=== PATIENT | female | born 1955 | race Caucasian/White ===

== ENCOUNTER 2018-08-05 16:27 | Inpatient (IN) | payer BC ==
[2018-08-05] MEDS ORDERED: Sodium Chloride 0.9% 100 ML SDV FLUSH PRN (18:13)
[2018-08-05] MEDS: Piperacillin/Tazobactam 4.5 GM in Sodium Chloride 0.9% 100 ML IV SCH (18:30)
[2018-08-05] MEDS: atorvaSTATin 40 MG Tab PO SCH (20:02)
[2018-08-05] MEDS: Gabapentin 100 MG Cap PO SCH (20:02)
[2018-08-05] MEDS: Apixaban 5 MG Tab PO SCH (20:02)
[2018-08-05] MEDS ORDERED: Non-Formulary Medication 1 Each (Magnesium Oxide [Magnesium Oxide] 400 MG) PO SCH (21:00)
[2018-08-06] MEDS: Piperacillin/Tazobactam 4.5 GM in Sodium Chloride 0.9% 100 ML IV SCH ×4 (01:00→20:23)
[2018-08-06] MEDS: Acetaminophen 325 MG Tab PO PRN ×4 (01:04→20:26)
[2018-08-06] MEDS: Omeprazole 20 MG Cap.CR PO SCH (07:24)
[2018-08-06] MEDS: Apixaban 5 MG Tab PO SCH ×2 (08:37→20:25)
[2018-08-06] MEDS: predniSONE 20 MG Tab PO SCH (08:37)
[2018-08-06] MEDS: Gabapentin 100 MG Cap PO SCH ×2 (08:37→20:25)
[2018-08-06] MEDS: Potassium Chloride 20 MEQ Tab.ER PO SCH (08:38)
[2018-08-06] MEDS: Venlafaxine 150 MG Cap.ER PO SCH (08:38)
--- NOTE | 2018-08-06 10:23 | PCM.PN ---
- General Info Date of Service: 08/06/18 Functional Status: Reports: Tolerating Diet, Other (Admits to feeling better today, less pain upon inspiration,). Denies: New Symptoms - Review of Systems General: Denies: Fever, Weakness, Fatigue, Malaise, Chills HEENT: Reports: No Symptoms Pulmonary: Reports: Sputum. Denies: Shortness of Breath, Pleuritic Chest Pain, Wheezing Cardiovascular: Denies: Chest Pain Gastrointestinal: Reports: No Symptoms Genitourinary: Reports: No Symptoms Skin: Reports: No Symptoms. Denies: Pruritis Neurological: Reports: No Symptoms Psychiatric: Reports: No Symptoms - Patient Data Vitals - Most Recent: Last Vital Signs Temp 98.5 F 08/06/18 06:45 Pulse 80 08/06/18 06:45 Resp 20 08/06/18 06:45 BP 132/78 08/06/18 06:45 Pulse Ox 93 L 08/06/18 06:45 Weight - Most Recent: 169 lb 11.2 oz I&O - Last 24 Hours: Intake & Output 08/05/18 08/06/18 08/06/18 22:59 06:59 14:59 Intake Total 700 375 Balance 700 375 Lab Results Last 24 Hours: Laboratory Results - last 24 hr 08/06/18 08/06/18 Range/Units 07:07 07:07 WBC 8.52 (5.00-10.00) 10^3/uL RBC 3.92 (3.80-5.50) 10^6/uL Hgb 12.7 (12.0-16.0) g/dL Hct 38.9 (37.0-47.0) % MCV 99.2 H (82.0-92.0) fL MCH 32.4 H (27.0-31.0) pg MCHC 32.6 (32.0-36.0) g/dL RDW 13.6 (11.5-14.5) % Plt Count 297 (150-400) 10^3/uL MPV 10.6 H (7.4-10.4) fL Immature Gran % (Auto) 0.9 (0.0-5.0) % Neut % (Auto) 77.7 H (50.0-70.0) % Lymph % (Auto) 13.8 L (20.0-40.0) % [place] % (Auto) 7.0 (2.0-8.0) % Eos % (Auto) 0.6 L (1.0-3.0) % Baso % (Auto) 0.0 (0.0-1.0) % Immature Gran # (Auto) 0.08 (0.00-0.50) 10^3/uL Neut # (Auto) 6.61 (2.50-7.00) 10^3/uL Lymph # (Auto) 1.18 (1.00-4.00) 10^3/uL [place] # (Auto) 0.60 (0.10-0.80) 10^3/uL Eos # (Auto) 0.05 L (0.10-0.30) 10^3/uL Baso # (Auto) 0.00 (0.00-0.10) 10^3/uL Sodium 142 (136-145) mmol/L Potassium 4.2 (3.3-5.3) mmol/L Chloride 103 (98-115) mmol/L Carbon Dioxide 30.2 (21.0-32.0) mmol/L Anion Gap 13.0 (5-15) mmol/L BUN 18 (6-25) mg/dL Creatinine 1.03 (0.51-1.17) mg/dL Est Cr Clr Drug Dosing 54.37 mL/min Estimated GFR (MDRD) 54 mL/min Glucose 87 (75 - 99) mg/dL Calcium 9.2 (8.7-10.3) mg/dL Med Orders - Current: Current Medications Acetaminophen (Tylenol) 650 mg PO Q4HR PRN PRN Reason: Pain Last Admin: 08/06/18 08:36 Dose: 650 mg Apixaban (Eliquis) 5 mg PO BID [facility] Last Admin: 08/06/18 08:37 Dose: 5 mg Atorvastatin Calcium (Lipitor) 40 mg PO BEDTIME [facility] Last Admin: 08/05/18 20:02 Dose: 40 mg Gabapentin (Neurontin) 100 mg PO BID [facility] Last Admin: 08/06/18 08:37 Dose: 100 mg Piperacillin Sod/Tazobactam (Sod 4.5 gm/ Sodium Chloride) 100 mls @ 200 mls/hr IV Q6H [facility] Last Admin: 08/06/18 07:40 Dose: 200 mls/hr Vancomycin HCl 1.25 gm/ Sodium (Chloride) 250 mls @ 166.667 mls/hr IV Q12H [facility] Last Admin: 08/06/18 05:47 Dose: 166.667 mls/hr Sodium Chloride (Normal Saline) 250 mls @ 50 mls/hr IV ASDIRECTED [facility] Non-Formulary Medication (Magnesium Oxide [Magnesium Oxide]) 400 mg PO BID [facility] Omeprazole (Omeprazole) 20 mg PO ACBREAKFAST [facility] Last Admin: 08/06/18 07:24 Dose: 20 mg Potassium Chloride (Klor-Con M20) 20 meq PO DAILY [facility] Last Admin: 08/06/18 08:38 Dose: 20 meq Prednisone (Prednisone) 20 mg PO DAILY [facility] Last Admin: 08/06/18 08:37 Dose: 20 mg Sodium Chloride (Normal Saline) 100 ml FLUSH ASDIRECTED PRN PRN Reason: Other Last Admin: 08/05/18 18:30 Dose: 100 ml Vancomycin HCl (Pharmacy To Dose - Vancomycin) 1 dose .XX ASDIRECTED [facility] Venlafaxine HCl (Effexor Xr) 150 mg PO DAILY [facility] Last Admin: 08/06/18 08:38 Dose: 150 mg Discontinued Medications Vancomycin HCl 1.25 gm/ Sodium (Chloride) 250 mls @ 166.667 mls/hr IV ONETIME ONE Stop: 08/05/18 18:44 Last Admin: 08/05/18 19:22 Dose: 166.667 mls/hr - Exam Quality Assessment: No: Supplemental Oxygen General: Alert, Oriented, Cooperative, No Acute Distress Neck: Supple Lungs: Rhonchi (Posterior rhonchi left middle) Cardiovascular: Regular Rate, Regular Rhythm GI/Abdominal Exam: Soft, Non-Tender (Female) Exam: Deferred Back Exam: No: CVA Tenderness (L), CVA Tenderness (R) Extremities: No Pedal Edema, Normal Capillary Refill Peripheral Pulses: 2+: Radial (L), Radial (R) Neurological: No New Focal Deficit Psy/Mental Status: Alert, Normal Affect, Normal Mood - Problem List Review Problem List Initiated/Reviewed/Updated: Yes - My Orders Last 24 Hours: My Active Orders 08/06/18 11:30 Sodium Chloride 0.9% [Normal Saline] 250 ml IV ASDIRECTED - Plan Plan:: history summary 63 YO female Was admitted August [address] Benny henderson due to pneumonia. Patient underwent bronchoscopy on 07/21/18 which confirmed diagnosis of metastatic cervical cancer. A few days following, continued to have shortness of breath and cough. she was subsequentlys started levofloxacin and prednisone on 07/29/18 without much resolution in symptoms and also had increase in purulent sputum production S/p bronchoscopy on 07/21/18 which confirmed diagnosis of metastatic cervical cancer. A few days following, continued to have shortness of breath and cough. Started levofloxacin and prednisone on 07/29/18. Hasn't noticed much improvement and instead feels worse. Denies hemoptysis, but has purulent sputum production. Also persistently short of breath without much improvement with current measures. Ongoing generalized fatigue and weakness. Real alleviating factors. Vital signs at [facility] HR 100,m BP 100/68, temperature 97.7 O2 sats 90% primary hospital problems Pneumonia, RLL, failed outpatient ABX Zosyn/vancomycin, sputum culture, Bronchogenic carcinoma Chronic problems Cervical CA COPD/current tobacco user, mild obstructive ventilatory limitation, chronic anticoagulation Hypercholesterolemia, home statin Obesity depression GERD, PPI disposition/overall plan --Continue inpatient status --Continue with Current antibiotic, pharmacy to trough --BC surveillance/sputum --DVT prophylaxis, on home factor Xa inhibitor 2/2 to his treatment of DVT
[2018-08-06] MEDS ORDERED: Sodium Chloride 0.9% 250 ML IV SCH (11:30)
[2018-08-06] MEDS: atorvaSTATin 40 MG Tab PO SCH (20:25)
[2018-08-07] MEDS: Acetaminophen 325 MG Tab PO PRN ×2 (02:52→11:19)
[2018-08-07] MEDS: Piperacillin/Tazobactam 4.5 GM in Sodium Chloride 0.9% 100 ML IV SCH ×3 (02:59→13:52)
[2018-08-07] MEDS: Omeprazole 20 MG Cap.CR PO SCH (07:34)
[2018-08-07 07:46] LABS: ANION GAP 11.7 mmol/L (5-15)
[2018-08-07] MEDS: Gabapentin 100 MG Cap PO SCH (08:47)
[2018-08-07] MEDS: Apixaban 5 MG Tab PO SCH (08:47)
[2018-08-07] MEDS: Venlafaxine 150 MG Cap.ER PO SCH (08:47)
[2018-08-07] MEDS: Potassium Chloride 20 MEQ Tab.ER PO SCH (08:47)
[2018-08-07] MEDS: predniSONE 20 MG Tab PO SCH (08:48)
--- NOTE | 2018-08-07 11:38 | PCM.DCSUM1 ---
Discharge Summary - Discharge Data Discharge Date: 08/07/18 Discharge Disposition: Home, Self-Care 01 Condition: Good - Patient Instructions Diet: Usual Diet as Tolerated Activity: As Tolerated Showering/Bathing: May Shower Notify Provider of: Fever, Increased Pain, Nausea and/or Vomiting - Discharge Plan *PRESCRIPTION DRUG MONITORING PROGRAM REVIEWED*: Not Applicable *COPY OF PRESCRIPTION DRUG MONITORING REPORT IN PATIENT ORALIA: Not Applicable Prescriptions/Med Rec: Amoxicillin/Clavulanate K [Augmentin 875-125 MG] 1 tab PO BID 5 Days #10 tablet predniSONE [Prednisone] 20 mg PO DAILY #5 tablet Home Medications: Home Meds Acetaminophen [Tylenol] 650 mg PO Q4HR PRN 08/05/18 [History] Albuterol [Ventolin HFA] 1 puff INH Q4HR PRN 08/05/18 [History] Apixaban [Eliquis] 5 mg PO BID 08/05/18 [History] Aspirin [Halfprin] 81 mg PO DAILY 08/05/18 [History] EPINEPHrine [Epipen] 0.3 ml IM ASDIRECTED PRN 08/05/18 [History] Fish Oil/[place]-3 Fatty Acids [Fish Oil 1,000 MG] 1,000 mg PO DAILY 08/05/18 [ History] Gabapentin [Neurontin] 100 mg PO BID 08/05/18 [History] Lactobacillus Acidophilus [Probiotic] 1 cap PO DAILY 08/05/18 [History] Magnesium Oxide 400 mg PO BID 08/05/18 [History] Non-Formulary Medication [NF Drug] 1 cap PO DAILY 08/05/18 [History] Non-Formulary Medication [NF Drug] 1 mg TOP DAILY PRN 08/05/18 [History] Omeprazole 20 mg PO DAILY 08/05/18 [History] Potassium Chloride [Klor-Con M20] 20 meq PO DAILY 08/05/18 [History] Venlafaxine [Effexor XR] 150 mg PO DAILY 08/05/18 [History] atorvaSTATin Calcium [Lipitor] 40 mg PO BEDTIME 08/05/18 [History] hydrOXYzine pamoate [Hydroxyzine Pamoate] 25 mg PO Q6HR PRN 08/05/18 [History] Amoxicillin/Clavulanate K [Augmentin 875-125 MG] 1 tab PO BID 5 Days #10 tablet 08/07/18 [Rx] predniSONE [Prednisone] 20 mg PO DAILY #5 tablet 08/07/18 [Rx] Referrals: Kristel Hernandez MD [Primary Care Provider] - 08/09/18 (Call Angel Rene Thursday morning, 08/09, to make appt for Thursday or Thursday) - Discharge Summary/Plan Comment DC Time >30 min.: Yes - Patient Data Vitals - Most Recent: Last Vital Signs Temp 36.5 C 08/07/18 11:00 Pulse 92 08/07/18 11:00 Resp 20 08/07/18 11:00 BP 122/68 08/07/18 11:00 Pulse Ox 91 L 08/07/18 11:00 Weight - Most Recent: 76.975 kg I&O - Last 24 hours: Intake & Output 08/06/18 08/07/18 08/07/18 22:59 06:59 14:59 Intake Total 730 170 Balance 730 170 Lab Results - Last 24 hrs: Laboratory Results - last 24 hr 08/07/18 08/07/18 Range/Units 07:10 07:10 WBC 8.16 (5.00-10.00) 10^3/uL RBC 3.72 L (3.80-5.50) 10^6/uL Hgb 12.1 (12.0-16.0) g/dL Hct 36.9 L (37.0-47.0) % MCV 99.2 H (82.0-92.0) fL MCH 32.5 H (27.0-31.0) pg MCHC 32.8 (32.0-36.0) g/dL RDW 13.5 (11.5-14.5) % Plt Count 271 (150-400) 10^3/uL MPV 10.4 (7.4-10.4) fL Immature Gran % (Auto) 1.0 (0.0-5.0) % Neut % (Auto) 76.4 H (50.0-70.0) % Lymph % (Auto) 15.0 L (20.0-40.0) % [place] % (Auto) 6.7 (2.0-8.0) % Eos % (Auto) 0.7 L (1.0-3.0) % Baso % (Auto) 0.2 (0.0-1.0) % Immature Gran # (Auto) 0.08 (0.00-0.50) 10^3/uL Neut # (Auto) 6.23 (2.50-7.00) 10^3/uL Lymph # (Auto) 1.22 (1.00-4.00) 10^3/uL [place] # (Auto) 0.55 (0.10-0.80) 10^3/uL Eos # (Auto) 0.06 L (0.10-0.30) 10^3/uL Baso # (Auto) 0.02 (0.00-0.10) 10^3/uL Sodium 143 (136-145) mmol/L Potassium 3.7 (3.3-5.3) mmol/L Chloride 105 (98-115) mmol/L Carbon Dioxide 30.0 (21.0-32.0) mmol/L Anion Gap 11.7 (5-15) mmol/L BUN 20 (6-25) mg/dL Creatinine 1.06 (0.51-1.17) mg/dL Est Cr Clr Drug Dosing 52.83 mL/min Estimated GFR (MDRD) 52 mL/min Glucose 92 (75 - 99) mg/dL Calcium 8.6 L (8.7-10.3) mg/dL [facility]AREK Results - Last 24 hrs: Microbiology 08/05/18 18:00 Aerobic Blood Culture - Preliminary Blood NO GROWTH AFTER 1 DAY Anaerobic Blood Culture - Preliminary NO GROWTH AFTER 1 DAY 08/05/18 17:30 Aerobic Blood Culture - Preliminary Blood NO GROWTH AFTER 1 DAY Anaerobic Blood Culture - Preliminary NO GROWTH AFTER 1 DAY Med Orders - Current: Current Medications Acetaminophen (Tylenol) 650 mg PO Q4HR PRN PRN Reason: Pain Last Admin: 08/07/18 11:19 Dose: 650 mg Apixaban (Eliquis) 5 mg PO BID [facility] Last Admin: 08/07/18 08:47 Dose: 5 mg Atorvastatin Calcium (Lipitor) 40 mg PO BEDTIME [facility] Last Admin: 08/06/18 20:25 Dose: 40 mg Gabapentin (Neurontin) 100 mg PO BID [facility] Last Admin: 08/07/18 08:47 Dose: 100 mg Vancomycin HCl 1.25 gm/ Sodium (Chloride) 250 mls @ 166.667 mls/hr IV Q12H [facility] Last Admin: 08/07/18 05:44 Dose: 166.667 mls/hr Sodium Chloride (Normal Saline) 250 mls @ 50 mls/hr IV ASDIRECTED [facility] Piperacillin Sod/Tazobactam (Sod 4.5 gm/ Sodium Chloride) 100 mls @ 200 mls/hr IV Q6H [facility] Last Admin: 08/07/18 07:34 Dose: 200 mls/hr Non-Formulary Medication (Magnesium Oxide [Magnesium Oxide]) 400 mg PO BID [facility] Omeprazole (Omeprazole) 20 mg PO ACBREAKFAST [facility] Last Admin: 08/07/18 07:34 Dose: 20 mg Potassium Chloride (Klor-Con M20) 20 meq PO DAILY [facility] Last Admin: 08/07/18 08:47 Dose: 20 meq Prednisone (Prednisone) 20 mg PO DAILY [facility] Last Admin: 08/07/18 08:48 Dose: 20 mg Vancomycin HCl (Pharmacy To Dose - Vancomycin) 1 dose .XX ASDIRECTED [facility] Venlafaxine HCl (Effexor Xr) 150 mg PO DAILY [facility] Last Admin: 08/07/18 08:47 Dose: 150 mg Discontinued Medications Piperacillin Sod/Tazobactam (Sod 4.5 gm/ Sodium Chloride) 100 mls @ 200 mls/hr IV Q6H [facility] Last Admin: 08/06/18 07:40 Dose: 200 mls/hr Vancomycin HCl 1.25 gm/ Sodium (Chloride) 250 mls @ 166.667 mls/hr IV ONETIME ONE Stop: 08/05/18 18:44 Last Admin: 08/05/18 19:22 Dose: 166.667 mls/hr Sodium Chloride (Normal Saline) 100 ml FLUSH ASDIRECTED PRN PRN Reason: Other Last Admin: 08/05/18 18:30 Dose: 100 ml
== END 2018-08-07 18:54 | disposition home or self-care (01) | DRG 139 ==
LOC: KA.MS 16:27
PROVIDERS: ADMIT Family Medicine; ATTEND Family Medicine
DX: J18.1 Lobar pneumonia, unspecified organism (principal); C53.9 Malignant neoplasm of cervix uteri, unspecified; C78.01 Secondary malignant neoplasm of right lung; F32.5 Major depressive disorder, single episode, in full remission; M54.6 Pain in thoracic spine; G89.29 Other chronic pain; E78.00 Pure hypercholesterolemia, unspecified; F17.210 Nicotine dependence, cigarettes, uncomplicated; E66.9 Obesity, unspecified; K21.9 Gastro-esophageal reflux disease without esophagitis; J44.9 Chronic obstructive pulmonary disease, unspecified; Z79.82 Long term (current) use of aspirin; Z79.899 Other long term (current) drug therapy; Z68.26 Body mass index [BMI] 26.0-26.9, adult; Z88.8 Allergy status to other drugs, medicaments and biological substances; Z92.3 Personal history of irradiation; Z79.01 Long term (current) use of anticoagulants; Z90.49 Acquired absence of other specified parts of digestive tract; Z91.030 Bee allergy status; Z91.048 Other nonmedicinal substance allergy status; Z86.718 Personal history of other venous thrombosis and embolism
CPT/HCPCS: 36415; 80048; 80202; 85025; 87040; A9270-GY; J2543; J3370; J7040; J7050